=== PATIENT | female | born 1980 | race Caucasian/White ===

== ENCOUNTER 2018-02-27 20:24 | Emergency (ER) | payer MEDICAID ==
[2018-02-27] MEDS: HYDROCODONE/APAP (5/325) TAB PO (21:49)
[2018-02-27] MEDS: DIPHTH/TET/ACEL PERTUSS (ADULT) 0.5 ML VIAL IM* (21:51)
[2018-02-27] MEDS: LIDOCAINE 1% (MDV) 10 ML INJ INJ (21:52)
== END 2018-02-27 23:15 | disposition home or self-care (01) ==
LOC: FTE 20:24
DX: S61.411A Laceration without foreign body of right hand, initial encounter (principal); W26.8XXA Contact with other sharp object(s), not elsewhere classified, initial encounter; Y92.9 Unspecified place or not applicable; Z23 Encounter for immunization
CPT/HCPCS: 12001; 90471; 90715; 99283-25

== ENCOUNTER 2018-03-02 14:40 | Emergency (ER) | payer MEDICAID | END 2018-03-02 15:32 | disposition home or self-care (01) | LOC: FTE 14:40 | DX: Z48.01 Encounter for change or removal of surgical wound dressing (principal) | CPT/HCPCS: 99281; Z7502 ==

== ENCOUNTER 2018-03-07 12:29 | Emergency (ER) | payer MEDICAID | END 2018-03-07 13:22 | disposition home or self-care (01) | LOC: FTE 12:29 | DX: Z48.02 Encounter for removal of sutures (principal) | CPT/HCPCS: 99283; Z7502 ==

== ENCOUNTER 2018-03-09 16:47 | Emergency (ER) | payer MEDICAID | END 2018-03-09 17:51 | disposition home or self-care (01) | LOC: FTE 16:47 | DX: Z48.02 Encounter for removal of sutures (principal) | CPT/HCPCS: 99281; Z7502 ==

== ENCOUNTER 2018-07-20 15:25 | Emergency (ER) | payer MEDICAID | END 2018-07-20 19:09 | disposition home or self-care (01) | LOC: FTE 15:25 | DX: F41.9 Anxiety disorder, unspecified (principal) | CPT/HCPCS: 99283; Z7502 ==